=== PATIENT | male | born 1955 | race Caucasian/White ===

== ENCOUNTER 2023-09-12 20:30 | Emergency (ER) | payer MEDICARE, SELFPAY ==
--- NOTE | ~2023-09-12 | XR_ITS ---
EXAMINATION: XR knee RT 3V DATE: 09/12/2023 21:00 INDICATION: Anterior right knee pain. TECHNIQUE: 3 views of right knee were obtained. COMPARISON: None. FINDINGS: Bone alignment is normal. No fracture. There is mild osteoarthritis of medial and patellofe moral compartments. There is chondrocalcinosis of the menisci. No knee joint effusion. There is anter ior soft tissue swelling. IMPRESSION: 1. Mild right knee osteoarthritis. Reviewed, dictated and finalized at location E. GRATION AIDE
[2023-09-12 20:34] VITALS: BP 168/87; PULSE 84; RESP 16; TEMP 36.3; O2SAT 95
[2023-09-12 20:41] VITALS: BP 168/87; PULSE 82; RESP 20; TEMP 36.3; O2SAT 95
--- NOTE | 2023-09-12 20:48 | ED.LOWEXIN ---
HPI - Extremity Injury (Lower) General Chief Complaint: Extremity Injury, Lower Stated Complaint: knee pain Time Seen by Provider: 09/12/23 20:48 Source: patient Mode of arrival: ambulatory Limitations: no limitations History of Present Illness HPI Narrative: patient is a 68-year-old male with no significant past medical history that presents today with right knee pain. He has had right knee pain for the last 10 days now. He states that his right knee has always bothered over the past 3 years but has flared up the last 10 days. He went to his family medicine doctor today and they gave him systemic shot of steroids. He says this did not help all his still very painful. He has never had any imaging of the knee done before. MD complaint: knee injury (right) Onset (ago): year(s) Injury: Right: knee Type of Injury: unknown Place: home Severity: moderate Severity scale (1-10): 6 Relieving factors: nothing Exacerbating factors: nothing Associated symptoms: ambulatory Other symptoms: none Treatments prior to arrival: cold therapy Related Data Home Medications Medication Instructions Recorded Confirmed amlodipine 10 mg tablet (Norvasc) 10 mg PO DAILY 09/12/23 09/12/23 omeprazole 20 mg capsule,delayed 20 mg PO DAILY 09/12/23 09/12/23 release potassium chloride 10 mEq 10 meq PO DAILY 09/12/23 09/12/23 tablet,extended release (Klor-Con) rosuvastatin 10 mg tablet (Crestor) 10 mg PO DAILY 09/12/23 09/12/23 triamterene 75 1 tablet PO DAILY 09/12/23 09/12/23 mg-hydrochlorothiazide 50 mg tablet (Maxzide) valacyclovir 500 mg tablet 500 mg PO DAILY 09/12/23 09/12/23 (Valtrex) Allergies Allergy/AdvReac Type Severity Reaction Status Date / Time Sulfa (Sulfonamide Allergy Severe RASH/HIVES Verified 08/09/16 10:29 Antibiotics) Review of Systems Review of Systems: All systems reviewed & are unremarkable except as noted in HPI and below Constitutional: Constitutional: Reports no additional constitutional complaints Eyes: Eyes: Reports no additional eye complaints ENT: Reports system reviewed and no additional complaints, except as documented Cardiovascular: Cardiovascular: Reports no additional cardiovascular complaints Respiratory: Respiratory: Reports no additional respiratory complaints Gastrointestinal: Gastrointestinal: Reports no additional gastrointestinal complaints Genitourinary: Genitourinary: Reports no additional male genitourinary complaints Musculoskeletal: Musculoskeletal: Reports arthralgias (right knee) Integumentary/Breasts: Skin/Breast: Reports system reviewed and no additional complaints, except as docu Neurologic: Reports system reviewed and no additional complaints, except as documented Psychiatric: Psychiatric: Reports no additional psychiatric complaints Endocrine: Endocrine: Reports no additional endocrine complaints Exam Const: General: healthy appearing and no acute distress Nutritional Appearance: well nourished Orientation/consciousness: patient oriented x3 Limitations: no limitations HENMT: Head: normal to inspection Ears: external ears normal Face/Nose/Sinus: Normal external nose present Face and sinus: normal facial exam Mouth: Yes Normal oral and palatal mucosa present Eyes: Conjunctivae: conjunctivae normal Pupils: Equal, round and reactive pupils present Neck: Neck: normal visual inspection Chest: Chest palpation & inspection: normal inspection of the chest Resp: Effort & Inspection: normal respiratory effort Auscultation: clear to auscultation bilaterally Cardio: Rate: regular rate Rhythm: regular rhythm GI: GI Palp: Yes Soft to palpation Back/Spine/Pelvis: Back: no CVA tenderness Skin: General skin exam: normal color Neuro: General: patient oriented x3 Cranial nerves: Yes Nystagmus not present Speech: normal speech Extrem: General: normal to inspection Course Vital Signs Vital signs: Vital Signs Temperature 97.3 F L 09/12/23
[2023-09-12 21:53] VITALS: BP 148/76; PULSE 86; RESP 18; O2SAT 98
== END 2023-09-12 21:55 | disposition home or self-care (01) ==
LOC: CHSED 21:37
PROVIDERS: Emergency Provider Family Medicine; PCP Internal Medicine
DX: M17.11 Unilateral primary osteoarthritis, right knee (principal)
CPT/HCPCS: 20610; 73562; 99283

== ENCOUNTER 2023-09-14 02:28 | Emergency (ER) | payer MEDICARE, SELFPAY ==
[2023-09-14 02:32] VITALS: BP 148/76; PULSE 79; RESP 18; TEMP 36.7; O2SAT 97
--- NOTE | 2023-09-14 02:38 | ED.LOWEXIN ---
HPI - Extremity Injury (Lower) General Chief Complaint: Extremity Injury, Lower Stated Complaint: right knee pain Source: patient and family Mode of arrival: ambulatory Limitations: no limitations History of Present Illness HPI Narrative: this is 68-year-old male with right knee pain had been seen in the ER on Friday night and had an x-ray performed which showed no acute fractures, patient was given steroid injection was does he thornton. There and 3 there is no warmth or red nit S swelling. No fever chills Onset (ago): day(s) Related Data Home Medications Medication Instructions Recorded Confirmed amlodipine 10 mg tablet (Norvasc) 10 mg PO DAILY 09/12/23 09/14/23 omeprazole 20 mg capsule,delayed 20 mg PO DAILY 09/12/23 09/14/23 release potassium chloride 10 mEq 10 meq PO DAILY 09/12/23 09/14/23 tablet,extended release (Klor-Con) rosuvastatin 10 mg tablet (Crestor) 10 mg PO DAILY 09/12/23 09/14/23 triamterene 75 1 tablet PO DAILY 09/12/23 09/14/23 mg-hydrochlorothiazide 50 mg tablet (Maxzide) valacyclovir 500 mg tablet 500 mg PO DAILY 09/12/23 09/14/23 (Valtrex) Allergies Allergy/AdvReac Type Severity Reaction Status Date / Time Sulfa (Sulfonamide Allergy Severe RASH/HIVES Verified 09/14/23 02:38 Antibiotics) Review of Systems Review of Systems: All systems reviewed & are unremarkable except as noted in HPI and below PMFSH Past Medical History Medical History Patient denies medical problems Exam Const: General: healthy appearing Nutritional Appearance: well nourished Orientation/consciousness: patient oriented x3 Resp: Effort & Inspection: normal respiratory effort Auscultation: clear to auscultation bilaterally Cardio: Rate: regular rate Rhythm: regular rhythm GI: GI Palp: Yes Soft to palpation Skin: General skin exam: normal color Rashes: no rashes Wounds: no wounds Neuro: General: patient oriented x3 and moves all extremities Extrem: Other: there is no warmth redness or swelling to the knee, there is crepitus with movement Course Course Emergency Course: patient received a dose of IM Toradol x-ray reviewed from Friday, will print out medication for patient to possibly search for pharmacy if needs to have pain medicine this evening. Vital Signs Vital signs: Vital Signs Temperature 36.7 C 09/14/23 02:32 Pulse Rate 79 09/14/23 02:32 Respiratory Rate 18 09/14/23 02:32 Blood Pressure 148/76 H 09/14/23 02:32 Pulse Oximetry 97 09/14/23 02:32 Oxygen Delivery Room Air 09/14/23 02:32 Temperature 36.7 C 09/14/23 02:32 Pulse Rate 79 09/14/23 02:32 Respiratory Rate 18 09/14/23 02:32 Blood Pressure 148/76 H 09/14/23 02:32 Pulse Oximetry 97 09/14/23 02:32 Oxygen Delivery Room Air 09/14/23 02:32 Critical Care Time Critical Care Time Critical Care Time: No Discharge Plan Discharge Clinical Impression: Knee pain Qualifiers: Chronicity: unspecified Laterality: right Qualified Code(s): M25.561 - Pain in right knee Patient Disposition: Home, Self-Care Condition: Stable Instructions: Antibiotic Form, Knee Pain (ED) Additional Instructions: advised to take medicine as prescribed and follow-up with primary care physician. Prescriptions: New tramadol 50 mg tablet 50 mg PO HS Qty: 20 0RF No Action potassium chloride [Klor-Con 10] 10 mEq tablet extended release 10 meq PO DAILY valacyclovir [Valtrex] 500 mg tablet 500 mg PO DAILY amlodipine [Norvasc] 10 mg tablet 10 mg PO DAILY omeprazole 20 mg capsule,delayed release(DR/EC) 20 mg PO DAILY triamterene-hydrochlorothiazid [Maxzide] 75-50 mg tablet 1 tablet PO DAILY rosuvastatin [Crestor] 10 mg tablet 10 mg PO DAILY Follow-up/Referrals: Nafisa Gresham MD [Primary Care Provider] - Time of Disposition: 02:43
[2023-09-14] MEDS: KETOROLAC 30 MG/ML VIAL (*BKC) IM (02:44)
== END 2023-09-14 03:05 | disposition home or self-care (01) ==
PROVIDERS: Emergency Provider Emergency Medicine; PCP Internal Medicine
DX: M25.561 Pain in right knee (principal); Z79.899 Other long term (current) drug therapy
CPT/HCPCS: 96372; 99283; J1885

== ENCOUNTER → 2023-09-22 14:03 | Outpatient (CLI) | payer MEDICARE, SELFPAY ==
--- NOTE | ~2023-09-22 | MR_ITS ---
EXAMINATION: MR knee RT wo con DATE: 09/22/2023 15:09 INDICATION: Lateral right knee pain. TECHNIQUE: Magnetic resonance imaging (MRI) of the right knee was performed without intravenous contr ast. Sequences included axial PD-weighted FS FSE, coronal PD-weighted FSE and PD-weighted FS FSE, sag ittal PD-weighted FSE, and sagittal T2-weighted FS FSE. COMPARISON: Right knee radiographs 09/12/2023 FINDINGS: Medial compartment: There is a complex tear of body and posterior horn of medial meniscus. There is partial-thickness car tilage loss of tibial condyle, deep anteromedially where there is mild subchondral edema-like marrow signal intensity. There is partial-thickness cartilage loss of femoral condyle, deep at the central, medial, and posterior articular surface with mild subchondral edema-like marrow signal intensity. Ost eophytes are noted. Lateral compartment: Lateral meniscus is normal. There is cartilage surface irregularity of tibial condyle and femoral con dyle. Patellofemoral compartment: There is deep fissuring of patellar median ridge with mild subchondral edema-like signal intensity. T here is cartilage surface irregularity of medial trochlea. There are tiny osteophytes. Ligaments and tendons: The anterior and posterior cruciate ligaments are normal. Medial collateral ligament is normal. There are changes of prior sprain of fibular collateral ligament characterized increased signal intensity proximally. There is mild patellar tendinopathy. Fluid: There is a small knee joint effusion. There is a small South's cyst. There is mild prepatellar and alicea perficial infrapatellar bursitis. IMPRESSION: 1. Moderate chondrosis of medial and patellofemoral compartments and mild chondrosis of lateral beverly rtment. 2. Tear of medial meniscus. 3. Small knee joint effusion. 4. Small South's cyst. Reviewed, dictated and finalized at location E. X KERNEL DEVELOPER IMPRESSION: 1. Moderate chondrosis of medial and patellofemoral compartments and mild chond rosis of lateral compartment. 2. Tear of medial meniscus. 3. Small knee joint effusion. 4. Small South's cyst.
== END ==
PROVIDERS: PCP Internal Medicine; Visit Provider Internal Medicine
DX: S83.241D Other tear of medial meniscus, current injury, right knee, subsequent encounter (principal); X58.XXXD Exposure to other specified factors, subsequent encounter; M25.461 Effusion, right knee; M71.21 Synovial cyst of popliteal space [Baker], right knee
CPT/HCPCS: 73721

== ENCOUNTER 2024-08-18 07:13 | Outpatient (CLI) | payer MEDICARE, SELFPAY ==
--- NOTE | ~2024-08-18 | CT_ITS ---
CT of the Abdomen: Indication: Abdominal pain Technique: 2.5 mm axial scans were obtained through the abdomen following intravenous administration of 100 cc of Omnipaque 350. Dose reduction technique was used on this scan by utilizing automated ex posure control and iterative reconstruction technique. The dose-length product (DLP) was 434.77 mGy-c m. Findings: Scans through the lung bases are unremarkable. The liver, spleen, pancreas, gallbladder, adrenals and kidneys are within normal limits. There are at herosclerotic calcifications of the aorta. No lymphadenopathy. Visual is bowel loops are unremarkable. No ascites. Impression: No significant abnormalities seen. Reviewed, dictated and finalized at location M. Impression: No significant abnormalities seen.
[2024-08-18 07:39] LABS: Estimated Glomerular Filt Rate > 60
== END 2024-08-18 07:14 | disposition home or self-care (01) ==
LOC: CHSIMG 07:15
PROVIDERS: PCP Internal Medicine; Visit Provider Nurse Practitioner Family
DX: R10.12 Left upper quadrant pain (principal); K21.9 Gastro-esophageal reflux disease without esophagitis
CPT/HCPCS: 74160; Q9967

== ENCOUNTER 2024-09-08 13:59 | Outpatient (CLI) | payer MEDICARE, SELFPAY ==
[2024-09-11 23:10] LABS: H pylori, Urea Breath NOT DETECTED (NOT DETECTED)
== END 2024-09-08 14:00 | disposition home or self-care (01) ==
LOC: CHSLAB 14:04
PROVIDERS: PCP Internal Medicine; Visit Provider Nurse Practitioner Family
DX: R10.9 Unspecified abdominal pain (principal); K21.9 Gastro-esophageal reflux disease without esophagitis
CPT/HCPCS: 83013

== ENCOUNTER 2024-09-23 15:56 | Outpatient (CLI) | payer MEDICARE, SELFPAY ==
--- NOTE | ~2024-09-23 | XR_ITS ---
EXAMINATION: XR thoracic spine 2V DATE: 09/23/2024 16:29 INDICATION: Mid back pain. TECHNIQUE: 3 views of thoracic spine were obtained. COMPARISON: None. FINDINGS: There is 10 degrees dextroscoliosis of thoracic spine. Vertebral body heights are normal. T here is mildly decreased disc height at many levels. There are endplate osteophytes at most levels. IMPRESSION: 1. Mild thoracic spondylosis. 2. Thoracic dextroscoliosis. Reviewed, dictated and finalized at location A. ENTIALING MANAGER
--- NOTE | ~2024-09-23 | XR_ITS ---
EXAMINATION: XR lumbar spine 2-3V DATE: 09/23/2024 16:29 INDICATION: Low back pain. TECHNIQUE: 3 views of lumbar spine were obtained. COMPARISON: None. FINDINGS: There is 12 degrees levoscoliosis of thoracolumbar spine. There is mild chronic anterior we dging of L1 vertebral body. There is mildly decreased disc height from L1-L2 through L4-L5 and modera tely decreased disc height at L5-S1. There are endplate osteophytes at all levels. There is multileve l facet joint osteoarthritis, severe in lower lumbar spine. IMPRESSION: 1. Moderate lower lumbar spondylosis. Reviewed, dictated and finalized at location A. MACHINE OPERATOR
--- NOTE | ~2024-09-23 | XR_ITS ---
EXAMINATION: XR sacroiliac joints min 3V DATE: 09/23/2024 16:28 INDICATION: Mid to low back pain. TECHNIQUE: 3 views of the sacroiliac joints were obtained. COMPARISON: None. FINDINGS: Alignment is normal. No fracture. There is mild osteoarthritis of the sacroiliac joints and hip joints. IMPRESSION: 1. Mild osteoarthritis of the sacroiliac joints. No evidence of inflammatory arthropathy. Reviewed, dictated and finalized at location A. NOLOGY METHODOLOGY CONSULTANT IMPRESSION: 1. Mild osteoarthritis of the sacroiliac joints. No evidence of inflammatory ar thropathy.
== END 2024-09-23 15:57 | disposition home or self-care (01) ==
PROVIDERS: PCP Internal Medicine; Visit Provider Internal Medicine
DX: M54.50 Low back pain, unspecified (principal); M43.06 Spondylolysis, lumbar region; M43.04 Spondylolysis, thoracic region; M41.84 Other forms of scoliosis, thoracic region; M47.898 Other spondylosis, sacral and sacrococcygeal region
CPT/HCPCS: 72070; 72100; 72202

== ENCOUNTER 2024-10-18 08:17 | Outpatient (CLI) | payer MEDICARE, SELFPAY ==
--- NOTE | 2024-10-18 08:23 | EST_ITS ---
Patient Info Name: Parrish Flaherty Age: 69 years : 1955 Gender: Male Ht: 67 in Wt: 187 lbs BSA: 2.03 m2 HR: 80 bpm BP: 174 / 87 mmHg Heart Rhythm: Sinus Rhythm Technical Quality: Good Exam Date: 10/18/2024 9:49 AM Exam Location: [facility] Patient Status: Outpatient Admit Date: 10/18/2024 Staff Ordering Physician: Nafisa Gresham MD Attending Provider: Nafisa Gresham MD Exam Type: CA stress raffy w NM Study Info A regadenoson stress test was performed. History/Risk Factors Hypertension: Yes Dyslipidemia: Yes Summary 1. 1. Negative lexiscan stress test for ischemic ST changes by ECG criteria. 2. 2. Baseline hypertension. 3. 3. Nuclear scan to follow and will be reported separately. Please correlate with it. 4. 4. Patiet informed of the above results. Protocol: LEXISCAN Stress ECG Details Stage: REST Duration (min): 1 min : 50 sec HR (bpm): 82 SBP (mmHg): 174 DBP (mmHg): 87 Stage: REST Duration (min): 5 min : 12 sec HR (bpm): 79 SBP (mmHg): 174 DBP (mmHg): 87 Stage: STAGE 1 Duration (min): 0 min : 25 sec HR (bpm): 79 SBP (mmHg): 174 DBP (mmHg): 87 Stage: RECOVERY Duration (min): 0 min : 34 sec HR (bpm): 90 SBP (mmHg): 174 DBP (mmHg): 87 Stage: RECOVERY Duration (min): 1 min : 34 sec HR (bpm): 97 SBP (mmHg): 174 DBP (mmHg): 87 Stage: RECOVERY Duration (min): 2 min : 34 sec HR (bpm): 93 SBP (mmHg): 164 DBP (mmHg): 48 Stage: RECOVERY Duration (min): 3 min : 34 sec HR (bpm): 93 SBP (mmHg): 119 DBP (mmHg): 63 Stage: RECOVERY Duration (min): 4 min : 34 sec HR (bpm): 94 SBP (mmHg): 154 DBP (mmHg): 71 Stage: RECOVERY Duration (min): 5 min : 34 sec HR (bpm): 95 SBP (mmHg): 167 DBP (mmHg): 72 Stage: RECOVERY Duration (min): 6 min : 24 sec HR (bpm): 101 SBP (mmHg): 165 DBP (mmHg): 75 Rest HR: 79 bpm Peak HR: 101 bpm Rest Sys BP: 174 mmHg Peak Sys BP: 167 mmHg Max Pred HR: 152 bpm % Max Pred HR: 66 % Target HR: 129 bpm Max RPP: 16,867 bpm*mmHg BP Response: Normal blood pressure response Termination Reason: Completed Protocol Cardiac Symptoms: None Total Time: 0 min : 25 sec Rest Gamble BP: 87 mmHg Peak Gamble BP: 72 mmHg Total Dose: 0.4 mg Resting ECG Normal sinus rhythm, delayed precordial R/S transition. Stress ECG No abnormal ST/T wave changes. Arrhythmias None. Report Signatures
--- NOTE | 2024-10-18 13:48 | WPDCARIOSTRE ---
Nuclear Stress Test INDICATIONS Indications: Chest pain PROCEDURE Procedure Performed: Myocardial Perf Spect-Multi Procedure: Patient underwent a lexiscan stress test and immediately was injected with 33.4 mCi of cardiolyte. Multiple tomogarphic images were obtained. These are of good quality. There is no perfusion defect with stress imaging. A separate resting images were obtained after patient was injected wtih 10.2 mCi of cardiolyte. Multiple tomogarphic images were obtained. These are of good quality. There is no perfusion defect with rest imaging. CONCLUSION Conclusion: 1. Normal myocardial perfusion imaging demonstrating no perfusion defects with stress or rest imaging. 2. No evidence of reversible ischemia. 3. Left ventriculogram demonstrates normal measured ejection fraction of 75% with no wall motion abnormalities. 4. TID score 1.06 is normal.
== END 2024-10-18 08:18 | disposition home or self-care (01) ==
LOC: CHSIMG 08:18
PROVIDERS: PCP Internal Medicine; Visit Provider Internal Medicine
DX: R94.31 Abnormal electrocardiogram [ECG] [EKG] (principal); R07.9 Chest pain, unspecified
CPT/HCPCS: 78452; 93017; A9502; J2785

== ENCOUNTER 2024-11-24 08:53 | Outpatient (CLI) | payer MEDICARE, SELFPAY ==
--- NOTE | ~2024-11-24 | NM_ITS ---
EXAMINATION: NM hepatobiliary w pharm DATE: 11/24/2024 11:06 INDICATION: Right upper quadrant abdominal pain COMPARISON: None. TECHNIQUE: 6.2 mCi Tc-99m mebrofenin (Choletec) was administered intravenously. Scintigraphic images of the abdomen were obtained for one hour. 1.7 mcg sincalide (Kinevac) was administered by slow intr avenous infusion, and imaging was continued for 30 minutes. Gallbladder ejection fraction was calcula charli by the technologist. FINDINGS: There is normal clearance of radiotracer from the blood pool. There is homogeneous tracer uptake by t he liver. Activity progresses to the gallbladder and bowel. The gallbladder ejection fraction (GBEF) is 12% (normal 10-90%, but most patient with gallbladder dysfunction have GBEF < 35% which does over lap with the normal range). IMPRESSION: 1. Gallbladder ejection fraction is at the lowest limits of normal. This could be normal but is als o within the range of overlap with gallbladder dysfunction or chronic cholecystitis in the appropriat e clinical setting. Reviewed, dictated and finalized at location A. R CASTING MACHINE SETUP OPERATOR IMPRESSION: 1. Gallbladder ejection fraction is at the lowest limits of normal. This coul d be normal but is also within the range of overlap with gallbladder dysfunctio n or chronic cholecystitis in the appropriate clinical setting.
== END 2024-11-24 08:54 | disposition home or self-care (01) ==
LOC: CHSIMG 08:54
PROVIDERS: PCP Internal Medicine; Visit Provider Internal Medicine
DX: R10.11 Right upper quadrant pain (principal)
CPT/HCPCS: 78227; A9537; J2805

== ENCOUNTER 2025-02-17 17:43 | Emergency (ER) | payer MEDICARE, SELFPAY ==
[2025-02-17 17:43] VITALS: BP 159/81; PULSE 88; RESP 16; TEMP 36.9; O2SAT 97
--- NOTE | 2025-02-17 18:00 | ED.EXTPRO ---
HPI - Extremity Problem General Chief complaint: Extremity Problem,Nontraumatic Stated complaint: knee pain Time Seen by Provider: 02/17/25 17:51 Source: patient Mode of arrival: ambulatory Limitations: no limitations History of Present Illness HPI Narrative: this is a 69-year-old male who presents with some right knee pain has chronic meniscal injury MRI performed in 2022 shows that he is a meniscal tear, does follow with his primary care physician. But has tramadol at home which he states has not been helping as much as he would like it to help. There is some tenderness with movement and palpation otherwise no swelling no redness no erythema no calf pain. MD Complaint: extremity pain Onset (ago): year(s) Pain Consistency: intermittent Location: right Severity scale (1-10): 3 Quality: aching Related Data Home Medications ?Medication ?Instructions ?Recorded ?Confirmed ?Last Taken ?Type amlodipine 10 mg tablet (Norvasc) 10 mg PO DAILY 09/12/23 12/13/24 Unknown History omeprazole 20 mg capsule,delayed 20 mg PO DAILY 09/12/23 12/13/24 Unknown History release potassium chloride 10 mEq 10 meq PO DAILY 09/12/23 12/13/24 Unknown History tablet,extended release (Klor-Con) rosuvastatin 10 mg tablet (Crestor) 10 mg PO DAILY 09/12/23 12/13/24 Unknown History triamterene 75 1 tablet PO DAILY 09/12/23 12/13/24 Unknown History mg-hydrochlorothiazide 50 mg tablet (Maxzide) valacyclovir 500 mg tablet 500 mg PO DAILY 09/12/23 12/13/24 Unknown History (Valtrex) cyclobenzaprine 10 mg tablet 10 mg PO TID 12/09/24 12/13/24 Unknown History ondansetron 4 mg disintegrating 4 mg PO Q6H 12/09/24 12/13/24 Unknown History tablet sildenafil 100 mg tablet (Viagra) 100 mg PO DAILY PRN 12/09/24 12/13/24 Unknown History Allergies Allergy/AdvReac Type Severity Reaction Status Date / Time Sulfa (Sulfonamide Allergy Severe RASH/HIVES Verified 12/09/24 09:04 Antibiotics) Review of Systems Review of Systems: All systems reviewed & are unremarkable except as noted in HPI and below PMFSH Past Medical History Medical History GERD (gastroesophageal reflux disease) Hypertension High cholesterol History of skin cancer Arthritis Patient denies medical problems Surgical History Surgical History History of esophagogastroduodenoscopy (EGD) H/O colonoscopy History of retinal detachment reattachment 1979 Family History Family History Other Asthma Heart disease Hypertension Social History Social History Smoking status: Never smoker Alcohol intake: current Do You Feel Safe in your Home?: Yes Lack of Transportation: No Lack of Food: Never True Current Housing: I Have Housing Concerned About Future Housing: No Difficulty Paying Gas/Electric Bills: No Difficulty Paying for Meds: No Currently Unemployed: No Education: High School Diploma/GED Difficulty w/ Childcare or Family Care: No Living arrangements: with family Occupation/Education: retired Exam Const: General: healthy appearing Nutritional Appearance: well nourished Orientation/consciousness: patient oriented x3 Limitations: no limitations Eyes: Conjunctivae: conjunctivae normal Neck: Neck: normal visual inspection Chest: Chest palpation & inspection: normal inspection of the chest Resp: Effort & Inspection: normal respiratory effort Auscultation: clear to auscultation bilaterally Cardio: Rate: regular rate Rhythm: regular rhythm GI: GI Palp: Yes Soft to palpation Auscultation: normal bowel sounds Skin: General skin exam: normal color Rashes: no rashes Wounds: no wounds Extrem: Other: Right knee tenderness with movement and palpation with no swelling no redness no erythema Course Course Emergency Course: Toradol 30mg IM administered. Advised patient continue his current medical regimen and will prescribe p.o. steroid that he can take. Vital Signs Vital signs: Vital Signs Temperature 36.9 C 02/17/25 17:43 Pulse Rate 88 02/17/25 17:43 Respiratory Rate 16 02/17/25 17:43 Blood Pressure 159/81 H 02/17/25 17:43 Pulse Oximetry 97 02/17/25 17:43 Oxygen Delivery Room Air 02/17/25 17:43 Temperature 36.9 C 02/17/25 17:43 Pulse Rate 88 02/17/25 17:43 Respiratory Rate 16 02/17/25 17:43 Blood Pressure 159/81 H 02/17/25 17:43 Pulse Oximetry 97 02/17/25 17:43 Oxygen Delivery Room Air 02/17/25 17:43 Critical Care Time Critical Care Time Critical Care Time: No Discharge Plan Discharge Clinical Impression: Muscle strain of right knee Patient Disposition: Home Condition: Stable Instructions: Antibiotic Form, Knee Sprain (ED) Additional Instructions: advised to take medication as prescribed and to follow with primary as scheduled. Patient Language: Kyrgyz Prescriptions: New prednisone 20 mg tablet 20 mg PO DAILY 5 Days Qty: 5 0RF No Action potassium chloride [Klor-Con 10] 10 mEq tablet extended release 10 meq PO DAILY valacyclovir [Valtrex] 500 mg tablet 500 mg PO DAILY amlodipine [Norvasc] 10 mg tablet 10 mg PO DAILY omeprazole 20 mg capsule,delayed release(DR/EC) 20 mg PO DAILY triamterene-hydrochlorothiazid [Maxzide] 75-50 mg tablet 1 tablet PO DAILY rosuvastatin [Crestor] 10 mg tablet 10 mg PO DAILY tramadol 50 mg tablet 50 mg PO HS Qty: 20 0RF sildenafil [Viagra] 100 mg tablet 100 mg PO DAILY PRN Rx Instructions: administer 30 minutes to 4 hours before activity cyclobenzaprine 10 mg tablet 10 mg PO TID ondansetron 4 mg tablet,disintegrating 4 mg PO Q6H Follow-up/Referrals: Nafisa Gresham MD [Primary Care Provider] - Time of Disposition: 18:04
[2025-02-17] MEDS: KETOROLAC 30 MG/ML VIAL (*BKC) IM (18:05)
[2025-02-17 18:24] VITALS: BP 143/76; PULSE 84; RESP 17; TEMP 36.9; O2SAT 99
== END 2025-02-17 18:24 | disposition home or self-care (01) ==
LOC: CHSED 18:08
PROVIDERS: Emergency Provider Emergency Medicine; PCP Internal Medicine
DX: S86.811A Strain of other muscle(s) and tendon(s) at lower leg level, right leg, initial encounter (principal); I10 Essential (primary) hypertension; X58.XXXA Exposure to other specified factors, initial encounter
CPT/HCPCS: 96372; 99283; J1885